=== PATIENT | female | born 1995 | race Caucasian/White ===

== ENCOUNTER 2016-07-16 21:57 | Inpatient (IN) | payer MEDICARE ==
[~2016-07-16] VITALS: Ht 167.6 cm; Wt 58.5 kg
[~2016-07-16 21:57] MED LIST: AMBIEN10 MG PO; ATIVAN1 MG PO; ATIVAN2 MG PO; BENZTROPINE MESY1 MG PO; BUSPAR 15 MG TA15 MG PO; CARAFATE1 G PO; CIPRO500 MG PO; DESERYL100 MG PO; HALDOL5 MG PO; HYDROCODON-ACET15 ML PO; IBUPROFEN600 MG PO; INDERAL10 MG PO; KEPPRA; KEPPRA500 MG PO; KLONOPIN1 MG PO; LAMICTAL200 MG PO; LEXAPRO20 MG PO; MACROBID100 MG PO; MELATONIN 10 M1 EACH PO; MIRALAX17 GM PO; PAXIL20 MG PO; PROTONIX40 MG PO; SEROQUEL50 MG PO; TRILEPTAL300 MG PO; VITAMIN B-1100 M1 PO
[2016-07-16 22:31] LABS: APPEARANCE CLEAR (CLEAR); BILIRUBIN NEGATIVE (NEGATIVE); COLOR DK YELLOW (YELLOW); GLUCOSE NEGATIVE (NEGATIVE); KETONE NEGATIVE (NEGATIVE); LEUKOCYTE ESTERASE TRACE (NEGATIVE); NITRITE NEGATIVE (NEGATIVE); PROTEIN TRACE mg/dL (NEGATIVE); UROBILINOGEN NORMAL (NORMAL)
[2016-07-16 22:32] LABS: BACTERIA MODERATE /hpf (NONE SEEN); EPITHELIAL CELLS 0-5 /hpf (0-5); MUCUS <1+ /lpf (NONE SEEN); RED CELLS - URINE 0-5 /hpf (0-5); WHITE CELLS - URINE 0-5 /hpf (0-5)
[2016-07-17 01:23] LABS: BASOPHILS 0.3 % (0-2); EOSINOPHILS 1.9 % (0-7); HEMATOCRIT 44.7 % (36.0-48.0); HEMOGLOBIN 15.2 g/dL (12-16); IMMATURE GRANULOCYTES 0.2 % (0-5); LYMPHOCYTES 33.3 % (15-50); MCH 30.8 pg (26.0-34.0); MCV 90.7 fL (80.0-100.0); MEAN PLATELET VOLUME 9.8 fL (7.4-10.4); MONOCYTES 8.5 % (2-11); NEUTROPHILS 55.8 % (40-80); PLATELET COUNT 347 10x3/uL (130-400); RBC 4.93 10x6/uL (4.00-5.40); RDW 12.6 % (11.5-14.5); WBC 12.2 10x3/uL (4.8-10.8)
[2016-07-17 01:39] LABS: ALBUMIN 3.9 g/dL (3.4-5.0); ALKALINE PHOSPHATASE 122 U/L (46-116); ALT (SGPT) 17 U/L (10-68); BILIRUBIN - TOTAL 0.76 mg/dL (0.2-1.3); CALC OSMOLALITY 277 mosm/kg (275-300); CALCIUM 8.8 mg/dL (8.5-10.1); CARBON DIOXIDE 23.2 mmol/L (21.0-32.0); CHLORIDE - SERUM 103 mmol/L (98-107); CREATININE - SERUM 0.6 mg/dL (0.6-1.3); GLUCOSE 91 mg/dL (74-106); MAGNESIUM - SERUM 1.8 mg/dL (1.8-2.4); POTASSIUM - SERUM 3.2 mmol/L (3.5-5.1); PROTEIN - SERUM 7.9 g/dL (6.4-8.2); SODIUM 139 mmol/L (136-145); UREA NITROGEN 13 mg/dL (7-18); eGFR NON AFRICAN AMERICAN > 90 mL/min (90-120)
[2016-07-17 04:00] VITALS: BP 120/69
[2016-07-17 04:24] VITALS: BMI 20.8
--- NOTE | 2016-07-17 04:33 | NUR ---
REC'D TO ROOM 2225 FROM ER DEPT A 21 Y/O W/FE PER SERVICE OF DR. MARCANO WITH DX BOWEL OBSTRUCTION/VOMITING. NGT PATENT TO RT STEINBERG. CLAMPED AT THIS TIME.
[2016-07-17] MEDS ORDERED: ZANTAC150 MG PO (04:41)
[2016-07-17] MEDS ORDERED: BENTYL10 MG PO (04:41)
--- NOTE | 2016-07-17 04:46 | NUR ---
RECIEVED TO ROOM 2225 VIA WHEELCHAIR FROM ER WITH NG INTACT TO RIHGT NARE, IV TO RIGHT ARM FOREARM WITHOUT REDNESS OR EDEMA NOTED. NO COMPLAINTS VOICCED. CL IN REACH.
--- NOTE | 2016-07-17 07:20 | NUR ---
REPORT RECEIVED FROM SALES DEVELOPMENT DIRECTOR NURSE. CALL LIGHT IN REACH.
[2016-07-17 07:55] VITALS: BP 110/51
--- NOTE | 2016-07-17 08:19 | NUR ---
ASSESSMENT COMPLETED. REGKIMBERLYN AND NAYANA SIVP. SCDs OFFERED BUT PATIENT REFUSED. WHEN I WALKED IN ROOM, PATIENT STATED THAT SHE TOOK HER NGT OUT ON GOVERNOR ASSEMBLER AND THE NURSE WAS AWARE. CALL LIGHT IN REACH. WILL CONITNUE WITH PLAN OF CARE.
--- NOTE | 2016-07-17 08:45 | NUR ---
SPOKE WITH DR. CHAVEZ ABOUT PATIENT NEEDING ORDER FOR IV FLUIDS.
--- NOTE | 2016-07-17 10:40 | NUR ---
TO CT AND BACK. NS IV BOLUS INITIATED. UNABLE TO SCAN D/T DR. MARCANO USING COMPUTER.
--- NOTE | 2016-07-17 10:43 | NUR ---
PATIENT RESTING IN THE BED. PATIENT IS AWAKE, ALERT, AND ORIENTED X4. DR. MARCANO IN PATIENT'S ROOM. PATIENT REPORTS HER PAIN LEVEL A "5" ON A 0-10 SCALE. PATIENT DENIES ANY NAUSEA OR VOMITING AT PRESENT TIME. IV SITE PATENT WITHOUT ANY S/S OF INFECTION NOTED IN PATIENT'S RIGHT HAND. PATIENT'S NG TUBE IS OUT. NORMAL SALINE BOLUS STARTED BY SMILEY GREEN. PATIENT DENIES ANY NEEDS AT PRESENT TIME. CALL LIGHT IN PATIENT'S REACH. WILL MONITOR PATIENT.
--- NOTE | 2016-07-17 11:36 | NUR ---
AM MEDS ADMINISTERED. MAINTENANCE FLUIDS ARE STILL NOT ON THE FLOOR. SPOKE WITH ANGELIC FROM PHARMACY ABOUT THEM BECAUSE BOLUSE IS ALMOST COMPLETED.
--- NOTE | 2016-07-17 11:43 | NUR ---
BOLUS IS COMPLETED. MAINTENANCE FLUIDS INITIATED. CALL LIGHT IN REACH.
--- NOTE | 2016-07-17 11:48 | NUR ---
ALLOWED SCDs ON. [place] HAT PLACED IN BR FOR MEASUREMENT OF URINE.
[2016-07-17 12:10] VITALS: BP 122/50
--- NOTE | 2016-07-17 12:31 | NUR ---
DC INSTRUCTION EXPLAINED TO PATIENT. VERBALIZED UNDERSTANDING. WAITING ON RIDE TO PICK HER UP.
--- NOTE | 2016-07-17 13:28 | NUR ---
RESTING WITH EYES CLOSED. RESP EVEN AND UNLABORED. CALL LIGHT IN REACH.
--- NOTE | 2016-07-17 13:50 | NUR ---
Patient Name: AVIVA ROMANO Admission Status: ER Accout number: [id number] Admission Date: 07-17-2016 : 1995 Admission Diagnosis: Attending: LEONORA Current LOS: 1 Anticipated DC Date: 07-17-2016 Planned Disposition: Home Primary Insurance: MEDICARE A & B Discharge Planning Comments: CM MET WITH PATIENT REGARDING D/C NEEDS AND PLANS. PATIENT STATED SHE LIVES WITH HER MOTHER AND SHE OR A FRIEND WILL PICK HER UP TODAY AT DISCHARGE. PATIENT STATED THERE ARE 4 STEPS TO ENTER HOME AND NO STAIRS INSIDE. PATIENT IS INDEPENDENT WITH HER CARE AND HAS NO DME AT HOME. PATIENTS PCP IS DR. LAZAR IN [place] AND USES [facility] IN [place]. PATIENT DENIES NEEDS FOR HH AND HAD NO OTHER NEEDS FOR DISCHARGE. CM WILL CONTINUE TO FOLLOW PATIENT WITH D/C NEEDS AND PLANS. PCP DR. LAZAR IN [place] [facility] IN [place]- [phone] RONAN ([facility] [place]) [phone] Crocheter: Adriana Brice Is the patient Alert and Oriented? Yes 0 * How many steps to enter\exit or inside your home? 4 NO RAILS 0 * PCP DR. LAZAR 0 * Pharmacy [facility] IN [place] 0 * Preadmission Environment Home with Family 0 * ADLs Partial Dependent 0 * Partial ADLs (Assistance needed) Bathing Dressing 0 * Equipment None 0 * List name and contact numbers for known caregivers / representatives who currently or will assist patient after discharge: RONAN ([facility] [place]) [phone] 0 * Community resources currently utilized None 0 * Additional services required to return to the preadmission environment? Yes 0 * Can the patient safely return to the preadmission environment? Yes 0 * Has this patient been hospitalized within the prior 30 days at any hospital? No 0 Grand Total: 0
[2016-07-17 13:57] VITALS: Ht 167.6 cm; Wt 58.5 kg
[2016-07-17 15:44] VITALS: BP 116/70
--- NOTE | 2016-07-17 15:59 | NUR ---
BENTYL PO AND IV REGLAN PER ORDER. NO OTHER NEEDS VOICED AT THIS TIME. CALL LIGHT IN REACH.
--- NOTE | 2016-07-17 17:06 | NUR ---
PHENERGAN GIVEN IM FOR C/O N/V. DILAUDID SIVP. CALL LIGHT IN REACH.
--- NOTE | 2016-07-17 18:14 | NUR ---
NO CHANGES IN INITIAL ASSESSMENT. SCDs TO BLE. CALL LIGHT IN REACH. WILL CONTINUE WITH PLAN OF CARE.
[2016-07-17 20:00] VITALS: BP 116/60
[2016-07-18] VITALS: BP 103/53
--- NOTE | 2016-07-18 01:02 | NUR ---
PT RESTING QUIETLY, EYES CLOSED. APPEAR TO BE SLEEPING. RESP EVEN, UNLABORED. NO DISTRESS NOTED. CONTINUE SUMATRA OPENER'S PLAN OF CARE.
--- NOTE | 2016-07-18 01:02 | NUR ---
EYES CLOSED RESP EVEN AND UNALBORED. NO DISTRESS NOTED.
[2016-07-18 04:00] VITALS: BP 99/57
--- NOTE | 2016-07-18 04:58 | NUR ---
NO CHANGE IN ASSESSMENT. CL IN REACH
--- NOTE | 2016-07-18 05:53 | NUR ---
NO CHANGE IN ASSESSEMNT.CL IN REACH
[2016-07-18 06:29] LABS: HEMATOCRIT 36.4 % (36.0-48.0); HEMOGLOBIN 11.9 g/dL (12-16); MCH 30.4 pg (26.0-34.0); MCHC 32.7 g/dL (31.0-37.0); MCV 93.1 fL (80.0-100.0); MEAN PLATELET VOLUME 10.1 fL (7.4-10.4); RBC 3.91 10x6/uL (4.00-5.40); RDW 12.7 % (11.5-14.5); WBC 5.5 10x3/uL (4.8-10.8)
[2016-07-18 06:30] LABS: PLATELET COUNT 246 10x3/uL (130-400)
--- NOTE | 2016-07-18 06:54 | NUR ---
REPORT RECEIVED FROM LEATHER GRADER NURSE. CALL LIGHT IN REACH.
[2016-07-18 07:24] LABS: CALC OSMOLALITY 277 mosm/kg (275-300); CALCIUM 8.1 mg/dL (8.5-10.1); CARBON DIOXIDE 25.2 mmol/L (21.0-32.0); CHLORIDE - SERUM 109 mmol/L (98-107); CREATININE - SERUM 0.5 mg/dL (0.6-1.3); GLUCOSE 95 mg/dL (74-106); MAGNESIUM - SERUM 1.6 mg/dL (1.8-2.4); POTASSIUM - SERUM 3.8 mmol/L (3.5-5.1); SODIUM 141 mmol/L (136-145); UREA NITROGEN 3 mg/dL (7-18); eGFR NON AFRICAN AMERICAN > 90 mL/min (90-120)
[2016-07-18 07:27] LABS: EOSINOPHILS 1 % (0-7); LYMPHOCYTES 70 % (15-50); MONOCYTES 3 % (2-11); NEUTROPHILS 25 % (40-80); PLATELET ESTIMATE NORMAL
[2016-07-18 08:09] VITALS: BP 119/72
--- NOTE | 2016-07-18 08:20 | NUR ---
ASSESSMENT COMPLETED. SCDs TO BLE. CALL LIGHT IN REACH. WILL CONTINUE WITH PLAN OF CARE.
[2016-07-18] MEDS ORDERED: PHENERGAN25 MG/ML PO (09:24)
--- NOTE | 2016-07-18 09:35 | NUR ---
PATIENT ALERT IN LOW JOHNSON POSITION. NO SIGNS OF DISTRESS NOTED. PHYSICIAN AND SOURCE INSPECTOR AT BEDSIDE. SIDE RAILS UP X2. BED IN LOW POSITION. CALL LIGHT IN REACH.
--- NOTE | 2016-07-18 10:11 | NUR ---
AM MEDS ADMINISTERED. CALL LIGHT IN REACH.
--- NOTE | 2016-07-18 10:20 | NUR ---
WALKED TO THE [facility] AND PULLED THE EMERGENCY LIGHT. WALKED IN THE ROOM AND PATIENT WAS SITTING ON THE TOILET. STATES SHE FELL ON THE FLOOR BUT PULLED HERSELF UP ON HER OWN. STATES SHE HURT HER FEET AND LEGS BUT WHEN TOLD WE WILL GET AN XRAY, SHE STATED SHE WAS OK. ASSISTED BACK TO BED PER SONG ANGELO, AND MYSELF. BED ALARM PLACED ON AND DOOR LEFT OPEN.
--- NOTE | 2016-07-18 11:27 | NUR ---
LARGE BM NOTED IN BR.
--- NOTE | 2016-07-18 12:04 | NUR ---
CM SPOKE WITH PATIENT REGARDING D/C TODAY. PATIENT DID NOT WANT HH AND DENIED ANY NEEDS. PATIENTS MOTHER IS PICKING HER UP
[2016-07-18 12:38] VITALS: BP 99/56
--- NOTE | 2016-07-18 16:57 | NUR ---
DC'D TO VEHICLE VIA WC.
== END 2016-07-18 16:57 | disposition home or self-care (01) | DRG 392 ==
LOC: D.ER 21:57 → D.MS 07-17 02:04
PROVIDERS: Emergency Medicine; Surgery; ADMIT Family Medicine
DX: K52.9 Noninfective gastroenteritis and colitis, unspecified (principal); E87.6 Hypokalemia; K21.9 Gastro-esophageal reflux disease without esophagitis

== ENCOUNTER 2016-09-02 20:47 | Emergency (ER) | payer MEDICARE ==
[2016-07-17 13:57] VITALS: BMI 20.8
[~2016-09-02 20:47] MED LIST changes: +BENTYL10 MG PO; +PHENERGAN25 MG/ML PO; +ZANTAC150 MG PO
[2016-09-02 22:07] LABS: APPEARANCE CLEAR (CLEAR); BILIRUBIN NEGATIVE (NEGATIVE); COLOR DK YELLOW (YELLOW); GLUCOSE NEGATIVE (NEGATIVE); KETONE NEGATIVE (NEGATIVE); LEUKOCYTE ESTERASE 1+ (NEGATIVE); NITRITE NEGATIVE (NEGATIVE); PROTEIN TRACE mg/dL (NEGATIVE); UROBILINOGEN NORMAL (NORMAL)
[2016-09-02 22:08] LABS: BACTERIA MODERATE /hpf (NONE SEEN); EPITHELIAL CELLS 0-5 /hpf (0-5); RED CELLS - URINE 25-50 /hpf (0-5); WHITE CELLS - URINE 0-5 /hpf (0-5)
[2016-09-02 22:26] LABS: BASOPHILS 0.7 % (0-2); EOSINOPHILS 2.1 % (0-7); HEMOGLOBIN 12.9 g/dL (12-16); IMMATURE GRANULOCYTES 0.1 % (0-5); LYMPHOCYTES 39.6 % (15-50); MCH 31.4 pg (26.0-34.0); MCHC 33.9 g/dL (31.0-37.0); MCV 92.5 fL (80.0-100.0); MEAN PLATELET VOLUME 9.9 fL (7.4-10.4); MONOCYTES 6.7 % (2-11); NEUTROPHILS 50.8 % (40-80); PLATELET COUNT 299 10x3/uL (130-400); RBC 4.11 10x6/uL (4.00-5.40); RDW 12.7 % (11.5-14.5)
[2016-09-02 22:42] LABS: HCG SERUM NEGATIVE (NEGATIVE)
[2016-09-02 22:50] LABS: ALBUMIN 3.2 g/dL (3.4-5.0); ALKALINE PHOSPHATASE 97 U/L (46-116); ALT (SGPT) 15 U/L (10-68); CALC OSMOLALITY 277 mosm/kg (275-300); CALCIUM 8.3 mg/dL (8.5-10.1); CARBON DIOXIDE 22.5 mmol/L (21.0-32.0); CHLORIDE - SERUM 105 mmol/L (98-107); CREATININE - SERUM 0.5 mg/dL (0.6-1.3); GLUCOSE 90 mg/dL (74-106); LIPASE 103 U/L (73-393); POTASSIUM - SERUM 3.2 mmol/L (3.5-5.1); PROTEIN - SERUM 6.4 g/dL (6.4-8.2); SODIUM 140 mmol/L (136-145); UREA NITROGEN 9 mg/dL (7-18); eGFR NON AFRICAN AMERICAN > 90 mL/min (90-120)
== END 2016-09-03 02:00 | disposition home or self-care (01) ==
LOC: D.ER 20:47
PROVIDERS: Emergency Medicine
DX: R10.9 Unspecified abdominal pain (principal); F17.200 Nicotine dependence, unspecified, uncomplicated; I50.9 Heart failure, unspecified; F31.89 Other bipolar disorder

== ENCOUNTER 2016-09-20 19:33 | Emergency (ER) | payer MEDICARE ==
[2016-07-17 13:57] VITALS: BMI 20.8
[2016-09-20 20:04] LABS: APPEARANCE HAZY (CLEAR); BILIRUBIN NEGATIVE (NEGATIVE); COLOR YELLOW (YELLOW); GLUCOSE NEGATIVE (NEGATIVE); HCG URINE NEGATIVE (NEGATIVE); KETONE NEGATIVE (NEGATIVE); LEUKOCYTE ESTERASE TRACE (NEGATIVE); NITRITE NEGATIVE (NEGATIVE); PROTEIN NEGATIVE (NEGATIVE); SPECIFIC GRAVITY 1.015 (1.005-1.020); UROBILINOGEN NORMAL (NORMAL)
[2016-09-20 20:13] LABS: BACTERIA FEW /hpf (NONE SEEN); RED CELLS - URINE OCC /hpf (0-5)
[2016-09-20 20:33] LABS: BASOPHILS 0.3 % (0-2); EOSINOPHILS 2.9 % (0-7); HEMATOCRIT 45.4 % (36.0-48.0); HEMOGLOBIN 15.6 g/dL (12-16); IMMATURE GRANULOCYTES 0.1 % (0-5); LYMPHOCYTES 47.8 % (15-50); MCH 31.6 pg (26.0-34.0); MCHC 34.4 g/dL (31.0-37.0); MCV 91.9 fL (80.0-100.0); MEAN PLATELET VOLUME 9.8 fL (7.4-10.4); MONOCYTES 6.3 % (2-11); NEUTROPHILS 42.6 % (40-80); RBC 4.94 10x6/uL (4.00-5.40); RDW 12.4 % (11.5-14.5); WBC 9.2 10x3/uL (4.8-10.8)
[2016-09-20 20:36] LABS: PLATELET COUNT 390 10x3/uL (130-400)
[2016-09-20 20:38] LABS: HCG SERUM NEGATIVE (NEGATIVE)
[2016-09-20 20:48] LABS: ALBUMIN 4.1 g/dL (3.4-5.0); ALKALINE PHOSPHATASE 151 U/L (46-116); ALT (SGPT) 16 U/L (10-68); AMYLASE - SERUM 51 U/L (25-115); BILIRUBIN - TOTAL 0.45 mg/dL (0.2-1.3); CALC OSMOLALITY 274 mosm/kg (275-300); CALCIUM 9.1 mg/dL (8.5-10.1); CHLORIDE - SERUM 102 mmol/L (98-107); CREATININE - SERUM 0.7 mg/dL (0.6-1.3); GLUCOSE 75 mg/dL (74-106); LIPASE 109 U/L (73-393); POTASSIUM - SERUM 3.3 mmol/L (3.5-5.1); PROTEIN - SERUM 8.9 g/dL (6.4-8.2); SODIUM 139 mmol/L (136-145); UREA NITROGEN 7 mg/dL (7-18); eGFR NON AFRICAN AMERICAN > 90 mL/min (90-120)
== END 2016-09-20 21:54 | disposition left against medical advice (07) ==
LOC: D.ER 19:33
PROVIDERS: Emergency Medicine; Nurse Practitioner Family
DX: K59.00 Constipation, unspecified (principal); R11.0 Nausea; R53.83 Other fatigue; F17.200 Nicotine dependence, unspecified, uncomplicated; R00.0 Tachycardia, unspecified

== ENCOUNTER 2016-09-25 21:22 | Emergency (ER) | payer MEDICARE ==
[2016-07-17 13:57] VITALS: BMI 20.8
[2016-09-25 22:07] LABS: APPEARANCE HAZY (CLEAR); BACTERIA MODERATE /hpf (NONE SEEN); BILIRUBIN NEGATIVE (NEGATIVE); GLUCOSE NEGATIVE (NEGATIVE); KETONE NEGATIVE (NEGATIVE); LEUKOCYTE ESTERASE TRACE (NEGATIVE); NITRITE NEGATIVE (NEGATIVE); PROTEIN TRACE mg/dL (NEGATIVE); UROBILINOGEN NORMAL (NORMAL); WHITE CELLS - URINE 0-5 /hpf (0-5)
== END 2016-09-25 23:20 | disposition home or self-care (01) ==
LOC: D.ER 21:22
PROVIDERS: Emergency Medicine
DX: R10.9 Unspecified abdominal pain (principal); K59.00 Constipation, unspecified; R11.10 Vomiting, unspecified

== ENCOUNTER 2017-03-18 22:02 | Emergency (ER) | payer MEDICARE ==
[2016-07-17 13:57] VITALS: BMI 20.8
[2017-03-18 23:07] LABS: BASOPHILS 0.4 % (0-2); EOSINOPHILS 0.3 % (0-7); HEMATOCRIT 39.3 % (36.0-48.0); IMMATURE GRANULOCYTES 0.1 % (0-5); LYMPHOCYTES 21.3 % (15-50); MCH 30.6 pg (26.0-34.0); MCHC 33.1 g/dL (31.0-37.0); MCV 92.5 fL (80.0-100.0); MEAN PLATELET VOLUME 9.1 fL (7.4-10.4); MONOCYTES 7.7 % (2-11); NEUTROPHILS 70.2 % (40-80); PLATELET COUNT 385 10x3/uL (130-400); RBC 4.25 10x6/uL (4.00-5.40); RDW 12.8 % (11.5-14.5); WBC 7.5 10x3/uL (4.8-10.8)
[2017-03-18 23:25] LABS: HCG SERUM NEGATIVE (NEGATIVE)
[2017-03-18 23:39] LABS: ALBUMIN 3.7 g/dL (3.4-5.0); ALKALINE PHOSPHATASE 109 U/L (46-116); ALT (SGPT) 42 U/L (10-68); AMYLASE - SERUM 30 U/L (25-115); BILIRUBIN - TOTAL 0.65 mg/dL (0.2-1.3); CALC OSMOLALITY 275 mosm/kg (275-300); CALCIUM 8.8 mg/dL (8.5-10.1); CARBON DIOXIDE 26.1 mmol/L (21.0-32.0); CHLORIDE - SERUM 104 mmol/L (98-107); CREATININE - SERUM 0.5 mg/dL (0.6-1.3); GLUCOSE 104 mg/dL (74-106); LIPASE 78 U/L (73-393); POTASSIUM - SERUM 3.5 mmol/L (3.5-5.1); PROTEIN - SERUM 7.3 g/dL (6.4-8.2); SODIUM 139 mmol/L (136-145); UREA NITROGEN 7 mg/dL (7-18); eGFR NON AFRICAN AMERICAN > 90 mL/min (90-120)
[2017-03-19 02:07] LABS: APPEARANCE SLT CLOUDY (CLEAR); BILIRUBIN NEGATIVE (NEGATIVE); COLOR YELLOW (YELLOW); GLUCOSE NEGATIVE (NEGATIVE); KETONE SMALL mg/dL (NEGATIVE); NITRITE NEGATIVE (NEGATIVE); PROTEIN NEGATIVE (NEGATIVE); SPECIFIC GRAVITY 1.005 (1.005-1.020); UROBILINOGEN NORMAL (NORMAL)
[2017-03-19 02:08] LABS: BACTERIA FEW /hpf (NONE SEEN); EPITHELIAL CELLS 0-5 /hpf (0-5); RED CELLS - URINE NONE SEEN /hpf (0-5); WHITE CELLS - URINE NSEEN /hpf (0-5)
== END 2017-03-19 05:33 | disposition home or self-care (01) ==
LOC: D.ER 22:02
PROVIDERS: Family Medicine; Physician Assistant
DX: R10.84 Generalized abdominal pain (principal); Z87.09 Personal history of other diseases of the respiratory system; K29.00 Acute gastritis without bleeding

== ENCOUNTER 2017-03-21 13:05 | Emergency (ER) | payer MEDICARE ==
[2016-07-17 13:57] VITALS: BMI 20.8
[2017-03-21 13:34] LABS: HCG URINE NEGATIVE (NEGATIVE)
[2017-03-21 13:35] LABS: APPEARANCE CLEAR (CLEAR); BILIRUBIN NEGATIVE (NEGATIVE); COLOR YELLOW (YELLOW); GLUCOSE NEGATIVE (NEGATIVE); KETONE NEGATIVE (NEGATIVE); NITRITE NEGATIVE (NEGATIVE); PROTEIN NEGATIVE (NEGATIVE); SPECIFIC GRAVITY 1.005 (1.005-1.020); UROBILINOGEN NORMAL (NORMAL)
[2017-03-21 14:09] LABS: BASOPHILS 0.3 % (0-2); EOSINOPHILS 0.1 % (0-7); HEMATOCRIT 40.3 % (36.0-48.0); HEMOGLOBIN 13.5 g/dL (12-16); IMMATURE GRANULOCYTES 0.1 % (0-5); LYMPHOCYTES 34.4 % (15-50); MCH 30.9 pg (26.0-34.0); MCHC 33.5 g/dL (31.0-37.0); MCV 92.2 fL (80.0-100.0); MEAN PLATELET VOLUME 9.2 fL (7.4-10.4); MONOCYTES 7.3 % (2-11); NEUTROPHILS 57.8 % (40-80); PLATELET COUNT 340 10x3/uL (130-400); RBC 4.37 10x6/uL (4.00-5.40); RDW 12.4 % (11.5-14.5); WBC 7.5 10x3/uL (4.8-10.8)
[2017-03-21 14:19] LABS: HCG SERUM NEGATIVE (NEGATIVE)
[2017-03-21 14:20] LABS: ALBUMIN 3.9 g/dL (3.4-5.0); ALKALINE PHOSPHATASE 106 U/L (46-116); ALT (SGPT) 32 U/L (10-68); AMYLASE - SERUM 36 U/L (25-115); BILIRUBIN - TOTAL 0.39 mg/dL (0.2-1.3); CALC OSMOLALITY 275 mosm/kg (275-300); CALCIUM 9.1 mg/dL (8.5-10.1); CARBON DIOXIDE 26.7 mmol/L (21.0-32.0); CHLORIDE - SERUM 103 mmol/L (98-107); CREATININE - SERUM 0.6 mg/dL (0.6-1.3); GLUCOSE 92 mg/dL (74-106); LIPASE 85 U/L (73-393); POTASSIUM - SERUM 3.6 mmol/L (3.5-5.1); PROTEIN - SERUM 8.1 g/dL (6.4-8.2); SODIUM 139 mmol/L (136-145); UREA NITROGEN 7 mg/dL (7-18); eGFR NON AFRICAN AMERICAN > 90 mL/min (90-120)
== END 2017-03-21 18:22 | disposition home or self-care (01) ==
LOC: D.ER 13:05
PROVIDERS: Emergency Medicine; Physician Assistant
DX: K59.00 Constipation, unspecified (principal); F17.200 Nicotine dependence, unspecified, uncomplicated

== ENCOUNTER 2017-04-04 17:41 | Emergency (ER) | payer MEDICARE ==
[2016-07-17 13:57] VITALS: BMI 20.8
[2017-04-04 18:40] LABS: APPEARANCE HAZY (CLEAR); BASOPHILS 0.6 % (0-2); BILIRUBIN NEGATIVE (NEGATIVE); COLOR STRAW (YELLOW); EOSINOPHILS 2.3 % (0-7); GLUCOSE NEGATIVE (NEGATIVE); HEMOGLOBIN 12.6 g/dL (12-16); IMMATURE GRANULOCYTES 0.3 % (0-5); KETONE NEGATIVE (NEGATIVE); LYMPHOCYTES 55.4 % (15-50); MCH 30.8 pg (26.0-34.0); MCHC 33.2 g/dL (31.0-37.0); MCV 92.9 fL (80.0-100.0); MEAN PLATELET VOLUME 9.2 fL (7.4-10.4); MONOCYTES 6.8 % (2-11); NEUTROPHILS 34.6 % (40-80); NITRITE NEGATIVE (NEGATIVE); PH 5.5 (5.0-6.0); PLATELET COUNT 330 10x3/uL (130-400); PROTEIN NEGATIVE (NEGATIVE); RBC 4.09 10x6/uL (4.00-5.40); RDW 12.9 % (11.5-14.5); SPECIFIC GRAVITY 1.005 (1.005-1.020); UROBILINOGEN NORMAL (NORMAL); WBC 7.1 10x3/uL (4.8-10.8)
[2017-04-04 19:12] LABS: ALBUMIN 3.5 g/dL (3.4-5.0); ALKALINE PHOSPHATASE 92 U/L (46-116); ALT (SGPT) 16 U/L (10-68); AMYLASE - SERUM 38 U/L (25-115); BILIRUBIN - TOTAL 0.22 mg/dL (0.2-1.3); CALC OSMOLALITY 277 mosm/kg (275-300); CALCIUM 8.6 mg/dL (8.5-10.1); CARBON DIOXIDE 25.5 mmol/L (21.0-32.0); CHLORIDE - SERUM 106 mmol/L (98-107); CREATININE - SERUM 0.7 mg/dL (0.6-1.3); GLUCOSE 108 mg/dL (74-106); LIPASE 125 U/L (73-393); POTASSIUM - SERUM 3.6 mmol/L (3.5-5.1); PROTEIN - SERUM 6.4 g/dL (6.4-8.2); SODIUM 140 mmol/L (136-145); UREA NITROGEN 8 mg/dL (7-18); eGFR NON AFRICAN AMERICAN > 90 mL/min (90-120)
[2017-04-04 19:23] LABS: HCG URINE NEGATIVE (NEGATIVE)
== END 2017-04-04 22:35 | disposition home or self-care (01) ==
LOC: D.ER 17:41
PROVIDERS: Family Medicine
DX: R10.11 Right upper quadrant pain (principal); S30.1XXA Contusion of abdominal wall, initial encounter; W01.0XXA Fall on same level from slipping, tripping and stumbling without subsequent striking against object, initial encounter; Y93.89 Activity, other specified; Y92.019 Unspecified place in single-family (private) house as the place of occurrence of the external cause